=== PATIENT | female | born 1985 | race Caucasian/White ===

== ENCOUNTER 2016-06-05 03:25 | Emergency (ER) | payer SELFPAY ==
[~2016-06-05] VITALS: Ht 157.5 cm; Wt 56.7 kg
[2016-06-05 03:47] VITALS: BP 115/77
[2016-06-05 03:58] LABS: NEG OBC UR NEG; POS OBC UR POS
[2016-06-05 04:01] LABS: BARBITURATES NEG (NEG); BENZODIAZEPINES NEG (NEG); CANNABINOIDS NEG (NEG); COCAINE NEG (NEG); METHADONE NEG (NEG); OPIATES NEG (NEG); PHENCYCLIDINE NEG (NEG)
[2016-06-05 04:03] LABS: ETHANOL, URINE POS (NEG)
--- NOTE | 2016-06-05 05:28 | PHYS DOC ---
Past Medical History Past Medical History: No Pertinent History Past Surgical History: No Surgical History Alcohol Use: Occasionally Drug Use: None Adult General Chief Complaint Chief Complaint: ALCOHOL INTOXICATION [facility] HPI This 30-year-old female who presents with an acute episode of alcohol intoxication presents for medical evaluation. Patient is currently intoxicated but denies any specific complaints. She does admit to drinking multiple drinks of whiskey tonight. There is no indication that she had any traumatic injuries or had any other toxic ingestion of any kind. She denies any significant health problems. Patient is able to answer my questions and follow my commands this time but appears acutely intoxicated. Review of Systems Review of Systems Constitutional: Denies fever or chills [] Eyes: Denies change in visual acuity, redness, or eye pain [] HENT: Denies nasal congestion or sore throat [] Respiratory: Denies cough or shortness of breath [] Cardiovascular: No additional information not addressed in HPI [] GI: Denies abdominal pain, nausea, vomiting, bloody stools or diarrhea [] : Denies dysuria or hematuria [] Musculoskeletal: Denies back pain or joint pain [] Integument: Denies rash or skin lesions [] Neurologic: Denies headache, focal weakness or sensory changes [] Endocrine: Denies polyuria or polydipsia [] Allergies Allergies Allergies Coded Allergies Type Severity Reaction Last Updated Verified No Known Drug Allergies 06/05/16 No Physical Exam Physical Exam Constitutional: Well developed, well nourished, no acute distress, non-toxic appearance. [] HENT: Normocephalic, atraumatic, bilateral external ears normal, oropharynx moist, no oral exudates, nose normal. [] Eyes: PERRLA, EOMI, conjunctiva normal, no discharge. [] Neck: Normal range of motion, no tenderness, supple, no stridor. [] Cardiovascular:Heart rate regular rhythm, no murmur [] Lungs & Thorax: Bilateral breath sounds clear to auscultation [] Abdomen: Bowel sounds normal, soft, no tenderness, no masses, no pulsatile masses. [] Skin: Warm, dry, no erythema, no rash. [] Back: No tenderness, no CVA tenderness. [] Extremities: No tenderness, no cyanosis, no clubbing, ROM intact, no edema. [] Neurologic: Alert and oriented X 3, normal motor function, normal sensory function, no focal deficits noted. [] Psychologic: Affect normal, judgement normal, mood normal. [] Current Patient Data Vital Signs Vital Signs Date Time Temp Pulse Resp B/P Pulse Ox O2 Delivery O2 Flow Rate FiO2 06/05/16 03:47 97.4 75 16 98 Room Air 97.4 Lab Values Laboratory Tests Test 06/05/16 03:35 Urine Test Negative (NEG) Urine Opiates Screen Neg (NEG) Urine Methadone Screen Neg (NEG) Urine Barbiturates Neg (NEG) Urine Phencyclidine Screen Neg (NEG) Urine Amphetamine/Methamphetamine Neg (NEG) Urine Benzodiazepines Screen Neg (NEG) Urine Cocaine Screen Neg (NEG) Urine Cannabinoids Screen Neg (NEG) Urine Ethyl Alcohol Pos (NEG) EKG EKG [] Radiology/Procedures Radiology/Procedures [] Course & Med Decision Making Course & Med Decision Making Pertinent Labs and Imaging studies reviewed. (See chart for details) This 30-year-old females observed in the department several hours after an episode of acute alcohol intoxication. Her urine toxicology screen demonstrate only ethyl alcohol and no other illicit substances. Upon my final reassessment, the patient is alert and oriented and rather go home. There is no indication to perform any other laboratory workup or testing. She'll be discharged home to the care of her family with strict instructions to avoid excessive alcohol use. Dragon Disclaimer Dragon Disclaimer This electronic medical record was generated, in whole or in part, using a voice recognition dictation system. Departure Departure Impression: Primary Impression: Alcohol intoxication Disposition: 01 HOME, SELF-CARE Admitting Physician: Other Condition: STABLE Patient Instructions: Alcohol Intoxication, [id number] Additional Instructions: Please follow up with your primary doctor if you are concerned about your alcohol abuse. Return to the ER if you develop any worsening of your symptoms. MEGHA WELLER DO Jun 05, 2016 05:28
== END 2016-06-05 06:05 | disposition home or self-care (01) ==
LOC: ER 03:25
DX: F10.129 Alcohol abuse with intoxication, unspecified (principal); Y90.9 Presence of alcohol in blood, level not specified
CPT/HCPCS: 81025; 99283; G0481

== ENCOUNTER → 2020-12-01 | Outpatient (CLI) | payer SELFPAY ==
--- NOTE | 2020-12-01 09:42 | KCIC ---
INDICATION: Reason: New onset migraines. Dizziness, nausea, light sensitivity, nausea. / Spl. Instruc tions: / History: COMPARISON: None. TECHNIQUE: Axial CT images obtained through the head without intravenous contrast. One or more of the following individualized dose reduction techniques were utilized for this examinat ion: 1. Automated exposure control; 2. Adjustment of the mA and/or kV according to patient size; 3 . Use of iterative reconstruction technique. FINDINGS: No intracranial hemorrhage. No significant midline shift. Ventricles and sulci are unremarkable. No acute osseous abnormality. IMPRESSION: * No acute intracranial hemorrhage. Electronically signed by: Armen Li MD (12/01/2020 9:39 AM) [id number]
== END ==
LOC: KCIC CT 09:07
PROVIDERS: ATTEND Specialist
DX: G43.909 Migraine, unspecified, not intractable, without status migrainosus (principal)
CPT/HCPCS: 70450